=== PATIENT | female | born 1950 | race Caucasian/White ===

== ENCOUNTER 2016-12-03 06:55 | Emergency (ER) | payer MEDICARE ==
[~2016-12-03] VITALS: Ht 152.4 cm; Wt 100.0 kg
[~2016-12-03 06:55] MED LIST: ALBU6.7H INH; BACL10TA PO; DUONI INH; LEVO.1 PO; MOBI7.5T PO; ROSU40 PO
[2016-12-03 07:05] VITALS: BP 158/83; PULSE 98; RESP 20; TEMP 97; O2SAT 95
[2016-12-03] MEDS ORDERED: PROZ40CA PO (07:13)
[2016-12-03] MEDS ORDERED: MELO7.5T4 PO (07:13)
[2016-12-03] MEDS ORDERED: ROSU40 PO (07:13)
[2016-12-03] MEDS ORDERED: LEVO.15 PO (07:13)
--- NOTE | 2016-12-03 07:21 | PD ---
HPI Chief Complaint: Musculoskeletal Complaint Time Seen by Provider: 07:20 Travel History International Travel<30 days: No Contact w/Intl Traveler<30days: No Traveled to known affect area: No History of Present Illness HPI 66-year-old female presents to emergency Department with complaint of right- sided lower back pain that radiates down her buttock and back of her right leg 3 weeks. Denies fall, injury, strain. Has history of right hip replacement and chronic low back pain. Denies encopresis, incontinence, saddle anesthesias. Denies paresthesias, loss of sensation, decreased range of motion , decreased strength to bilateral lower extremities. Denies abdominal pain, fever, chills, nausea, vomiting. Has tried multiple [id number] medications without relief. Tried taking Flexeril with no relief. Pain is aggravated with walking and movement. Pain is decreased while at rest and in sitting position. Denies urinary symptoms, but states she did think about the possibility of urinary tract infection. Denies anticoagulants. Denies cancer. Dr. Gregorio is her orthopedic, and she has an appointment with him tomorrow, but cannot tolerate the pain and wanted to be seen today. Dr. Carrillo his primary care provider. History of COPD. Allergies to sulfa. No other modifying factors or associated signs and symptoms. PFSH Past Medical History Arthritis: Yes Blood Disorders: No Anxiety: No Depression: No Cancer: Yes (RIGHT BREAST RADIAL MASTECTOMY) Cardiovascular Problems: No High Cholesterol: Yes Chemotherapy: No Congestive Heart Failure: No COPD: Yes Coronary Artery Disease: No Diabetes: No Diminished Hearing: No Endocrine: Yes Gastrointestinal Disorders: Yes (HX REFLUX) GERD: Yes Genitourinary: Yes (URGENCY AND INCONTINENCE WITH COUGH) Hepatitis: No Hiatal Hernia: No Hypertension: Yes Immune Disorder: No Implanted Vascular Access Dvce: Yes Musculoskeletal: Yes (BRUISED ROTATOR CUFF ON LEFT, BURSITIS ON RIGHT SHOULDER) Neurologic: Yes Psychiatric: No Reproductive: Yes (HYSTERECTOMY R/T FIBROID TUMORS) Respiratory: Yes (COPD) Migraines: Yes Radiation Therapy: No Thyroid Disease: Yes Tetanus Vaccination: Unknown Past Surgical History Abdominal Surgery: Yes (GALLBLADDER) Body Medical Devices: METAL PLATE IN NECK AND EQUIPMENT IN LEFT HIP Cardiac Surgery: No Cholecystectomy: Yes (1981) Ear Surgery: No Eye Surgery: Yes (BILAT CATARACT) Genitourinary Surgery: No Gynecologic Surgery: Yes (HYSTERECTOMY) Hysterectomy: Yes Oral Surgery: Yes (FULL DENTURES TOP AND BOTTOM) Thoracic Surgery: Yes (RIGHT MASTECTOMY) Other Surgery: Yes (RIGHT MASTECTOMY 2001) Social History Alcohol Use: No Tobacco Use: No Substance Use: No Allergies-Medications (Allergen,Severity, Reaction): Coded Allergies: Sulfa (Verified Allergy, Severe, hives, 12/19/15) DENIES HIVES, CAUSES NAUSEA VOMITING Reported Meds & Prescriptions Reported Meds & Active Scripts Active Reported Meloxicam 7.5 Mg Tab 7.5 Mg PO DAILY Prozac (Fluoxetine HCl) 40 Mg Cap 40 Mg PO DAILY Crestor (Rosuvastatin Calcium) 40 Mg Tab 40 Mg PO DAILY Synthroid (Levothyroxine Sodium) 150 Mcg Tab 150 Mcg PO DAILY Review of Systems Except as stated in HPI: all other systems reviewed are Neg Physical Exam Narrative GENERAL: Well-nourished, well-developed female patient, in no acute distress SKIN: Warm and dry. HEAD: Atraumatic. Normocephalic. EYES: Pupils equal and round. No scleral icterus. No injection or drainage. ENT: Mucosa pink and moist. Airway patent. NECK: Trachea midline. CARDIOVASCULAR: Regular rate. RESPIRATORY: No accessory muscle use. GASTROINTESTINAL: Abdomen soft, non-tender, nondistended. Positive bowel sounds. No hepato-splenomegaly, or palpable masses. No guarding. Bladder nontender and nondistended. MUSCULOSKELETAL: Bilateral lower extremities supple and non-tense with 2+ pedal pulses and sensory intact; with full range of motion and 5/5 strength. Active dorsiflexion and extension of bilateral feet. Right straight leg raise is positive for low back pain. Left straight leg raise is negative for low back pain. Ambulatory with normal gait and assistance with cane. Sitting up in bed at 90. No obvious deformities. No clubbing. No cyanosis. No edema. BACK: No midline point tenderness on palpation of the lumbar, thoracic spine. Tenderness on palpation of right iliosacral area. No obvious deformities. NEUROLOGICAL: Awake and alert. Oriented 3. No obvious cranial nerve deficits. Motor grossly within normal limits. Normal speech. Moves all extremities. 5/5 strength to all extremities. Sensory intact. PSYCHIATRIC: Appropriate mood and affect; insight and judgment normal. Data Data Last Documented VS Vital Signs Date Time Temp Pulse Resp B/P Pulse Ox O2 Delivery O2 Flow Rate FiO2 12/03/16 07:05 97.0 98 20 158/83 95 Orders Ketorolac Inj (Toradol Inj) (12/03/16 07:30) Orphenadrine Inj (Norflex Inj) (12/03/16 07:30) Urinalysis - C+S If Indicated (12/03/16 07:21) [facility] Medical Decision Making Medical Screen Exam Complete: Yes Emergency Medical Condition: Yes Medical Record Reviewed: Yes Differential Diagnosis Sciatica, lumbar radiculopathy, acute exacerbation of chronic low back pain Narrative Course 66-year-old female physical exam and history of present illness consistent with right-sided sciatica. Has appointment with her orthopedic, Dr. Gregorio, tomorrow. Patient is ambulatory with normal gait at bedside with assistance with her cane. I will get a urinalysis to rule out UTI. Toradol and Norflex administered in the ER. Urinalysis ordered. 0831: Patient continues to be unable to urinate and does not want to stay any longer. She is declining urinalysis at this time. She says she will follow up with primary care outpatient. I offered the patient a nonnarcotic and a muscle relaxer for home and she declined, as she is following up with her orthopedic tomorrow. Instructed patient to follow up with primary care for further concern of urinary tract infection. Instructed patient to follow up with orthopedics tomorrow as scheduled appointment. Patient verbalized understanding and agreement to treatment plan and discharge instructions. Patient is medically cleared and stable for discharge. Discussed reasons to return to the emergency department. Instructed patient to follow up with primary care provider. Patient agrees with treatment plan. The patients vital signs are stable and the patient is stable for outpatient follow-up and treatment. Patient discharged home, stable and in no acute distress. Diagnosis Primary Impression: Sciatica of right side Referrals: Orthopedist Primary Care Physician Patient Instructions: General Instructions, Sciatica (ED) Additional Instructions: Tylenol as directed and as needed for pain Heating pad and/or ice to affected area to reduce pain Avoid aggravating activities; increase activity as tolerated Follow-up with primary care provider Return to emergency department immediately with worsening of symptoms Med/Other Pt SpecificInfo: No Change to Meds, No Meds Exist/No RX given Disposition: 01 DISCHARGE HOME Condition: Stable Moon Alonzo Dec 03, 2016 07:21
[2016-12-03] MEDS ORDERED: KETOROLAC TROMETHAMINE 60 MG/2 ML (IM) VIAL IM ONE (07:30)
[2016-12-03] MEDS ORDERED: ORPHENADRINE INJ 60 MG/2 ML AMP IM ONE (07:30)
== END 2016-12-03 08:34 | disposition home or self-care (01) ==
LOC: NEPB 06:55
DX: M54.31 Sciatica, right side (principal); Z96.641 Presence of right artificial hip joint; J44.9 Chronic obstructive pulmonary disease, unspecified; E78.00 Pure hypercholesterolemia, unspecified; K21.9 Gastro-esophageal reflux disease without esophagitis; I10 Essential (primary) hypertension; E07.9 Disorder of thyroid, unspecified
CPT/HCPCS: 96372; 99282; J1885; J2360

== ENCOUNTER 2016-12-10 13:58 | Inpatient (IN) | payer MEDICARE ==
[~2016-12-10] VITALS: Ht 152.4 cm; Wt 103.1 kg
[~2016-12-10 13:58] MED LIST changes: -ALBU6.7H INH; -BACL10TA PO; -DUONI INH; -LEVO.1 PO; +LEVO.15 PO; +MELO7.5T4 PO; -MOBI7.5T PO; +PROZ40CA PO
[2016-12-16] MEDS ORDERED: HYDR-3580 PO (07:30)
[2016-12-19] MEDS ORDERED: GENTAMICIN SULFATE 80 MG/2 ML VIAL ONE (09:54)
[2016-12-19] MEDS ORDERED: ceFAZolin INJ 1,000 MG VIAL ONE (09:54)
[2016-12-19] MEDS ORDERED: LACTATED RINGER'S 1000 ML INJ 1,000 ML ONE (10:16)
[2016-12-19] MEDS ORDERED: VANCOMYCIN HCL 1000 MG VIAL ONE ×2 (10:16→10:28)
[2016-12-19] MEDS ORDERED: SODIUM CHLOR 0.9% 250 ML INJ 250 ML ONE (10:16)
[2016-12-19] MEDS: LACTATED RINGER'S 1000 ML IV SCH (10:25)
[2016-12-19] MEDS ORDERED: BIOT1SUB SL (10:27)
[2016-12-19] MEDS ORDERED: LACTCAP8 PO (10:27)
[2016-12-19 10:29] VITALS: BP 150/76; PULSE 77; RESP 18; TEMP 99.2; O2SAT 97
[2016-12-19] MEDS ORDERED: ceFAZolin 2 GM PREMIX 50 ML IV SCH (10:45)
[2016-12-19] MEDS ORDERED: METOPROLOL TARTRATE 25 MG TAB PO PRN (10:45)
[2016-12-19] MEDS ORDERED: VANCOMYCIN 1000 MG/NS 250 ML (for <70 kg) IV SCH ×2 (10:45)
[2016-12-19] MEDS: SODIUM CHLORID 0.9% 500 ML IV SCH (10:45)
[2016-12-19] MEDS: CHLORHEXIDINE GLUCONATE 4% SOLN 120 ML BTL TOP SCH (10:45)
[2016-12-19] MEDS ORDERED: INSULIN HUMAN REGULAR 1,000 UNITS/10 ML VIAL SQ PRN (10:45)
[2016-12-19] MEDS ORDERED: MIDAZOLAM HCL 2 MG/2 ML VIAL ONE (11:12)
[2016-12-19] MEDS ORDERED: DEXAMETHASONE SOD PHOS 4 MG/ML VIAL ONE (11:12)
[2016-12-19] MEDS ORDERED: PROPOFOL 200 MG/20 ML AMP IV ONE (12:00)
[2016-12-19] MEDS ORDERED: NEOSTIGMINE METHYLSULFATE 10 MG/10 ML VIAL IV PUSH ONE (12:00)
[2016-12-19] MEDS ORDERED: ONDANSETRON HCL 4 MG/2 ML VIAL IV PUSH ONE (12:00)
[2016-12-19] MEDS ORDERED: ePHEDrine/NS 25 MG/5 ML SYR IV ONE (12:00)
--- NOTE | 2016-12-19 13:42 | HHI.PR ---
Immediate Post Op Note Procedure Date: Dec 19, 2016 Pre Op Diagnosis: (1) Osteoarthritis of right hip Post Op Diagnosis: (1) Osteoarthritis of right hip Surgeon: Mario Brown M.D. Mechanical Systems Design Engineer(s): Mona Ram PA-C Procedure: R DIPAK Complications: none Specimen(s) removed: none Estimated blood loss: 400 cc Anesthesia: General Drains: None Patient to: PACU Patient Condition: Good Implant/Devices: SEE IMPLANT LOG (if applicable) Date/Time of Procedure: SEE SURGICAL CARE RECORD Mario Brown MD Dec 19, 2016 13:41
[2016-12-19] MEDS ORDERED: MORPHINE SULFATE 30 MG/30 ML PCA IV SCH (13:45)
[2016-12-19] MEDS ORDERED: ONDANSETRON HCL 4 MG/2 ML VIAL IVP PRN (13:45)
[2016-12-19] MEDS ORDERED: SODIUM CHLORIDE 0.9% FLUSH 5 ML FLUSH IVF PRN (13:45)
[2016-12-19] MEDS ORDERED: Post-op Orders (for Pharmacy) MISC XX ONE (13:45)
[2016-12-19] MEDS ORDERED: ACETAMINOPHEN/HYDROcodone 325 MG/7.5 MG TAB PO PRN (13:45)
[2016-12-19] MEDS ORDERED: ALUMINUM/MAGNESIUM/SIMETH 30 ML CUP PO PRN (13:45)
[2016-12-19] MEDS ORDERED: ZOLPIDEM TARTRATE 5 MG TAB PO PRN (13:45)
[2016-12-19] MEDS ORDERED: NALOXONE HCL 0.4 MG/ML AMP IV PRN (13:45)
[2016-12-19] MEDS ORDERED: *morphine SULFATE 8 MG/ML PERIprocedure ONLY ONE ×3 (13:53→14:17)
[2016-12-19] MEDS ORDERED: fentaNYL CITRATE 250 MCG/5 ML AMP ONE (13:59)
[2016-12-19] MEDS ORDERED: MORPHINE SULFATE 4 MG/ML INJ ONE (14:00)
[2016-12-19] MEDS: PCA - TOTAL MG MORPHINE DELIVERED PER SHIFT SCH ×2 (14:00→22:00)
[2016-12-19] MEDS ORDERED: *HYDROmorphone PF 1 MG VIAL PERIprocedural Use ONLY ONE (14:31)
--- NOTE | 2016-12-19 14:31 | RADRPT ---
EXAM DATE/TIME: 12/19/2016 13:51 [facility] COMPARISON: No previous studies available for comparison. INDICATIONS : Post op right hip. MEDICAL HISTORY : None. SURGICAL HISTORY : None. ENCOUNTER: Initial ACUITY: 1 day PAIN SCORE: 10/10 LOCATION: Right hip. FINDINGS: AP view of the pelvis and lateral view of right hip. Bilateral hip prostheses in place. Alignment wit hin normal limits. No evidence of fracture. CONCLUSION: Unremarkable postoperative appearance right hip prosthesis. Joey Simmons MD on December 19, 2016 at 14:29 Board Certified Radiologist. This report was verified electronically.
[2016-12-19] MEDS: LACTATED RINGER'S 1000 ML INJ 1,000 ML IV SCH (14:40)
[2016-12-19] MEDS ORDERED: DO NOT ADM ANY ANTICOAGULANT DRUGS XX PRN (14:45)
[2016-12-19 15:19] VITALS: BP 110/68; PULSE 101; RESP 18; TEMP 98.5; O2SAT 96
--- NOTE | 2016-12-19 17:38 | PD.CONS ---
HPI Service [facility] Consult Requested By Primary Care Physician Unknown Diagnoses: Past Family Social History Allergies: Coded Allergies: Sulfa (Verified Allergy, Severe, hives, 12/11/16) DENIES HIVES, CAUSES NAUSEA VOMITING Physical Exam Vital Signs Vital Signs Date Time Temp Pulse Resp B/P Pulse Ox O2 Delivery O2 Flow Rate FiO2 12/19/16 14:45 98.6 88 14 121/58 95 Nasal Cannula 2 12/19/16 14:40 12 12/19/16 14:30 85 15 122/68 96 Nasal Cannula 3 12/19/16 14:15 83 15 126/67 99 Nasal Cannula 3 12/19/16 14:00 83 16 132/82 99 Simple Mask 8 12/19/16 13:45 97.6 80 14 161/90 95 Simple Mask 8 12/19/16 10:29 99.2 77 18 150/76 97 Physical Exam GENERAL: This is a well-nourished, well-developed patient, in no apparent distress. SKIN: No rashes, ecchymoses or lesions. Cool and dry. HEAD: Atraumatic. Normocephalic. No temporal or scalp tenderness. EYES: Pupils equal round and reactive. Extraocular motions intact. No scleral icterus. No injection or drainage. ENT: Nose without bleeding, purulent drainage or septal hematoma. Throat without erythema, tonsillar hypertrophy or exudate. Uvula midline. Airway patent. NECK: Trachea midline. No JVD or lymphadenopathy. Supple, nontender, no meningeal signs. CARDIOVASCULAR: Regular rate and rhythm without murmurs, gallops, or rubs. RESPIRATORY: Clear to auscultation. Breath sounds equal bilaterally. No wheezes , rales, or rhonchi. GASTROINTESTINAL: Abdomen soft, non-tender, nondistended. No hepato-splenomegaly , or palpable masses. No guarding. MUSCULOSKELETAL: Extremities without clubbing, cyanosis, or edema. No joint tenderness, effusion, or edema noted. No calf tenderness. Negative Homans sign bilaterally. NEUROLOGICAL: Awake and alert. Cranial nerves II through XII intact. Motor and sensory grossly within normal limits. Five out of 5 muscle strength in all muscle groups. Normal speech. Laboratory Laboratory Tests Test 12/19/16 10:24 Blood Type A POSITIVE Antibody Screen NEGATIVE Crossmatch Leukocyte-Reduced Red Blood Cells Blood Bank Comment A/P Assessment and Plan Assessment End-stage osteoarthritis right hip Status post right total hip arthroplasty on 12/19/16 History significant for obesity, tobacco abuse, COPD, right breast cancer status post mastectomy, Hypertension, left total hip replacement, insomnia, hypertension, urinary incontinence, back pain Status post prior back surgery, cholecystectomy Management Pain management Physical therapy Bowel regimen Prophylactic antibiotics were given intraoperatively Wound management per orthopedics Follow labs Keep hemoglobin above 8 Replace electrolytes as needed Discussed with patient Discussed with nurse We will follow daily while hospitalized Thank you for this consult La Angeles MD Dec 19, 2016 17:38
[2016-12-19 20:00] VITALS: BP 114/59; PULSE 100; RESP 18; TEMP 96.9; O2SAT 95
[2016-12-19] MEDS: SODIUM CHLORIDE 0.9% FLUSH 5 ML FLUSH IVF SCH (20:12)
[2016-12-19 21:55] VITALS: O2SAT 95
[2016-12-20] VITALS (8 sets, daily range): BP systolic 88–119; BP diastolic 50–66; PULSE 70–95; RESP 17–22; TEMP 96.3–97.8; O2SAT 94–98
[2016-12-20] MEDS: LACTATED RINGER'S 1000 ML INJ 1,000 ML IV SCH ×2 (02:07→14:37)
[2016-12-20] MEDS: SODIUM CHLORID 0.9% 500 ML IV SCH (03:25)
[2016-12-20 05:40] LABS: INTERNATIONAL NORMALIZED RATIO 1.5 RATIO; PROTHROMBIN TIME - PATIENT 16.7 SEC (9.8-11.6)
[2016-12-20 05:50] LABS: HEMATOCRIT 33.5 % (35.0-46.0); REVIEW FLAG FINAL
[2016-12-20] MEDS: PCA - TOTAL MG MORPHINE DELIVERED PER SHIFT SCH ×3 (06:00→22:00)
[2016-12-20] MEDS: LEVOTHYROXINE SODIUM 150 MCG TAB PO SCH (06:24)
[2016-12-20] MEDS ORDERED: BEDSIDE COMMODE1 MI1 (06:59)
[2016-12-20] MEDS ORDERED: WALKER WHEELS/F1 MIS (06:59)
--- NOTE | 2016-12-20 07:02 | PD.ORT.PN ---
Subjective Subjective Remarks pt doing well, no SOB, no chest pain, decreased pre-operative right hip pain Objective Vitals Vital Signs Date Time Temp Pulse Resp B/P Pulse Ox O2 Delivery O2 Flow Rate FiO2 12/20/16 06:00 19 12/20/16 04:00 97.3 92 18 105/65 95 12/20/16 00:00 97.8 95 20 119/66 95 12/19/16 22:00 18 12/19/16 21:55 95 21 12/19/16 20:00 96.9 100 18 114/59 95 12/19/16 15:19 98.5 101 18 110/68 96 12/19/16 14:45 98.6 88 14 121/58 95 Nasal Cannula 2 12/19/16 14:40 12 12/19/16 14:30 85 15 122/68 96 Nasal Cannula 3 12/19/16 14:15 83 15 126/67 99 Nasal Cannula 3 12/19/16 14:00 83 16 132/82 99 Simple Mask 8 12/19/16 13:45 97.6 80 14 161/90 95 Simple Mask 8 12/19/16 10:29 99.2 77 18 150/76 97 I/O 12/19/16 12/19/16 12/19/16 12/20/16 12/20/16 12/20/16 07:00 15:00 23:00 07:00 15:00 23:00 Intake Total 1100 ml 1316 ml Output Total 400 ml Balance 700 ml 1316 ml Intake Oral 720 ml IV Total 100 ml 596 ml Other 1000 ml Output Estimated Blood Loss 400 ml # Voids 1 # Bowel Movements 0 Result Diagram: 12/20/16 0506 Other Results Laboratory Tests Test 12/20/16 05:06 Prothrombin Time 16.7 SEC (9.8-11.6) Prothromb Time International 1.5 RATIO Ratio Objective Remarks seen by Dr. Mario Brown right hip dressings dry and intact +NVI no calf tenderness, negative homans Assessment & Plan Assessment and Plan POD # 1 s/p R DIPAK low dose Coumadin for DVT prop PT-WBAT d/c RN DIABETES today anticipate d/c to SNF on Friday Mona Ram Dec 20, 2016 07:02
[2016-12-20] MEDS: FLUoxetine HCL 20 MG CAP PO SCH (09:28)
[2016-12-20] MEDS: ATORVASTATIN 80 MG TAB PO SCH (09:28)
[2016-12-20] MEDS: SODIUM CHLORIDE 0.9% FLUSH 5 ML FLUSH IVF SCH ×2 (09:29→20:26)
[2016-12-20] MEDS: LACTATED RINGER'S 1000 ML IV SCH (10:45)
[2016-12-20] MEDS: CHLORHEXIDINE GLUCONATE 4% SOLN 120 ML BTL TOP SCH (10:45)
[2016-12-20] MEDS: ACETAMINOPHEN/HYDROcodone 325 MG/7.5 MG TAB PO PRN ×3 (12:32→22:14)
--- NOTE | 2016-12-20 13:36 | HHI.PR ---
Subjective Subjective Remarks no sob no cp no fever c/o shooting pain down right thigh oob in chair no bm yet eating okay, no n/v Review of Systems Constitutional Constitutional Remarks 12 point ROS completed, negative except as noted above Vitals/Results Intake & Output 12/19/16 12/19/16 12/20/16 15:00 23:00 07:00 Intake Total 1100 ml 1316 ml 708 ml Output Total 400 ml Balance 700 ml 1316 ml 708 ml Intake Oral 720 ml 240 ml IV Total 100 ml 596 ml 468 ml Other 1000 ml Output Estimated Blood Loss 400 ml # Voids 1 3 # Bowel Movements 0 0 Vital Signs Vital Signs Date Time Temp Pulse Resp B/P Pulse Ox O2 Delivery O2 Flow Rate FiO2 12/20/16 08:15 95 21 12/20/16 08:00 97.1 92 17 108/64 94 12/20/16 06:00 19 12/20/16 04:00 97.3 92 18 105/65 95 12/20/16 00:00 97.8 95 20 119/66 95 12/19/16 22:00 18 12/19/16 21:55 95 21 12/19/16 20:00 96.9 100 18 114/59 95 12/19/16 15:19 98.5 101 18 110/68 96 12/19/16 14:45 98.6 88 14 121/58 95 Nasal Cannula 2 12/19/16 14:40 12 12/19/16 14:30 85 15 122/68 96 Nasal Cannula 3 12/19/16 14:15 83 15 126/67 99 Nasal Cannula 3 12/19/16 14:00 83 16 132/82 99 Simple Mask 8 12/19/16 13:45 97.6 80 14 161/90 95 Simple Mask 8 CBC/BMP: 12/20/16 0506 Lab Results Laboratory Tests Test 12/20/16 05:06 Hemoglobin 11.1 GM/DL Hematocrit 33.5 % Prothrombin Time 16.7 SEC Prothromb Time International 1.5 RATIO Ratio Physical Exam General General Appearance: Well Developed, Well Nourished, No Acute Distress, Comfortable Eyes Eye Exam: Pupils Equal, Pupils Reactive Ears & Nose Ears & Nose Exam: Nasal Mucosa [place] Throat Throat Exam: Oral Mucosa [place] & Moist Neck Neck Exam: Neck Supple, Trachea Midline Pulmonary Resp Exam: Clear Bilaterally, No Distress Cardiology CV Exam: Regular, Good Perfusion Gastrointestinal/Abdomen GI Exam: Soft, Non-Tender, Bowel Sounds Present, Non-Distended Musculoskeletal MS Exam: Joints Intact Integumentary Skin Exam: Warm, Dry Extremeties Extremities Exam: Pedal Pulses Palpable, Trace Edema Neurologic Neuro Exam: Alert, Awake, Oriented, Speech Clear, Moving All Extremities, No Focal Deficits Psychiatric Psych Exam: Appropriate Responses VTE Prophylaxis VTE Prophylaxis Device: TEDs VTE Prophylaxis Meds: Coumadin Assessment/Plan Assessment/Plan Assessment End-stage osteoarthritis right hip Status post right total hip arthroplasty on 12/19/16 History significant for obesity, tobacco abuse, COPD, right breast cancer status post mastectomy, Hypertension, left total hip replacement, insomnia, hypertension, urinary incontinence, back pain Status post prior back surgery, cholecystectomy Management Pain management Physical therapy Bowel regimen Prophylactic antibiotics were given intraoperatively Wound management per orthopedics Follow labs Keep hemoglobin above 8, HH stable Replace electrolytes as needed will Zanaflex for muscle spasms PRN continue to follow D/W RN D/W Dr. Angeles D/W pt This patient was seen by myself and Dr. Angeles, this note is written on his behalf. Erin Newton Dec 20, 2016 13:36
[2016-12-20] MEDS: WARFARIN SOD 5 MG TAB PO SCH (16:40)
[2016-12-20] MEDS ORDERED: MAGNESIUM CITRATE SOLN 300 ML BTL PO ONE (17:00)
[2016-12-20] MEDS: DOCUSATE SODIUM 100 MG CAP PO SCH (20:28)
[2016-12-21] VITALS (7 sets, daily range): BP systolic 97–144; BP diastolic 50–82; PULSE 63–80; RESP 18–20; TEMP 96.4–98.7; O2SAT 93–98
[2016-12-21] MEDS: ACETAMINOPHEN/HYDROcodone 325 MG/7.5 MG TAB PO PRN ×5 (02:31→20:30)
[2016-12-21] MEDS: LACTATED RINGER'S 1000 ML INJ 1,000 ML IV SCH ×2 (03:07→15:37)
[2016-12-21] MEDS: PCA - TOTAL MG MORPHINE DELIVERED PER SHIFT SCH ×2 (06:00→11:31)
[2016-12-21 06:25] LABS: INTERNATIONAL NORMALIZED RATIO 1.4 RATIO; PROTHROMBIN TIME - PATIENT 15.5 SEC (9.8-11.6)
[2016-12-21] MEDS: LEVOTHYROXINE SODIUM 150 MCG TAB PO SCH (06:46)
--- NOTE | 2016-12-21 07:37 | PD.ORT.PN ---
Subjective Subjective Remarks pt doing well, states her pre-operative right hip pain is gone Objective Vitals Vital Signs Date Time Temp Pulse Resp B/P Pulse Ox O2 Delivery O2 Flow Rate FiO2 12/21/16 04:00 97.2 77 20 111/55 98 12/21/16 00:00 97.1 72 20 102/66 98 12/20/16 20:00 97.7 80 18 105/60 98 12/20/16 19:14 18 12/20/16 17:00 97/58 12/20/16 16:00 96.3 70 18 88/50 95 12/20/16 12:00 97.1 93 22 115/60 97 12/20/16 08:15 95 21 12/20/16 08:00 97.1 92 17 108/64 94 I/O 12/20/16 12/20/16 12/20/16 12/21/16 12/21/16 12/21/16 07:00 15:00 23:00 07:00 15:00 23:00 Intake Total 708 ml 720 ml 480 ml 280 ml Output Total 800 ml Balance 708 ml -80 ml 480 ml 280 ml Intake Oral 240 ml 720 ml 480 ml 280 ml IV Total 468 ml Output Urine Total 800 ml # Voids 3 2 1 3 # Bowel Movements 0 0 0 Result Diagram: 12/20/16 0506 Other Results Laboratory Tests Test 12/21/16 05:32 Prothrombin Time 15.5 SEC (9.8-11.6) Prothromb Time International 1.4 RATIO Ratio Objective Remarks seen by Dr. Mario Brown right hip dressings dry and intact +NVI no calf tenderness, negative homans Assessment & Plan Assessment and Plan POD # 2 s/p R DIPAK low dose Coumadin for DVT prop PT-WBAT anticipate d/c to SNF tomorrow Mona Ram Dec 21, 2016 07:27
[2016-12-21] MEDS: FLUoxetine HCL 20 MG CAP PO SCH (09:39)
[2016-12-21] MEDS: ATORVASTATIN 80 MG TAB PO SCH (09:39)
[2016-12-21] MEDS: DOCUSATE SODIUM 100 MG CAP PO SCH ×2 (09:39→20:29)
[2016-12-21] MEDS: SODIUM CHLORIDE 0.9% FLUSH 5 ML FLUSH IVF SCH ×2 (09:42→20:30)
[2016-12-21] MEDS: LACTATED RINGER'S 1000 ML IV SCH (09:46)
[2016-12-21] MEDS: CHLORHEXIDINE GLUCONATE 4% SOLN 120 ML BTL TOP SCH (09:47)
--- NOTE | 2016-12-21 14:18 | HHI.PR ---
Subjective History of Present Illness Subjective Remarks no sob no cp Afebrile Appetite good No acute pain for now oob in chair no bm yet, took M OM no n/v Review of Systems Hospital Day: 2 Review of Systems Constitutional Constitutional: Weakness (generalized) Constitutional Remarks 12 point ROS done. Positives noted, generalized weakness, constipation, anxiety mild, otherwise negative systems GI/Abdomen GI/Abdominal Exam: Constipation GI/Abdomen Remarks Taking a laxative for bowel regimen Musculoskeletal MS: Discomfort/Pain (when necessary) Psychiatric Psychiatric: Anxiety (mild) Vitals/Results Intake & Output 12/20/16 12/20/16 12/21/16 15:00 23:00 07:00 Intake Total 720 ml 480 ml 280 ml Output Total 800 ml Balance -80 ml 480 ml 280 ml Intake Oral 720 ml 480 ml 280 ml Output Urine Total 800 ml # Voids 2 1 3 # Bowel Movements 0 0 Vital Signs Vital Signs Date Time Temp Pulse Resp B/P Pulse Ox O2 Delivery O2 Flow Rate FiO2 12/21/16 12:00 96.4 79 18 119/58 95 12/21/16 09:18 97.5 63 18 97/50 96 12/21/16 04:00 97.2 77 20 111/55 98 12/21/16 00:00 97.1 72 20 102/66 98 12/20/16 20:00 97.7 80 18 105/60 98 12/20/16 19:14 18 12/20/16 17:00 97/58 12/20/16 16:00 96.3 70 18 88/50 95 CBC/BMP: 12/20/16 0506 Lab Results Laboratory Tests Test 12/21/16 05:32 Prothrombin Time 15.5 SEC Prothromb Time International 1.4 RATIO Ratio Imaging Remarks Last Impressions Hip and Pelvis X-Ray 12/19/16 0000 Signed Impressions: Service Date/Time: December 13:51 - CONCLUSION: Unremarkable postoperative appearance right hip prosthesis. Joey Simmons MD Current Medications Active Medications Docusate Sodium (Colace) 100 mg BID PO Last administered on 12/21/16 09:39; Admin Dose 100 MG; Start 12/20/16 at 21:00 Magnesium Citrate (Citroma Liq) 100 ml ONCE ONCE PO Last administered on 16:40; Admin Dose 100 ML; Start 12/20/16 at 17:00; Stop 12/20/16 at 17:01; Status DC Tizanidine HCl (Zanaflex) 4 mg Q8H PRN PO Last administered on 12/21/16 06:46; Admin Dose 4 MG; Start 12/20/16 at 21:00 Warfarin Sodium (Coumadin) Follow Sliding Scale... DAILY@1600 PO Last administered on 12/20/16 16:40; Admin Dose 2.5 MG; Start 12/20/16 at 16:00 Physical Exam General General Appearance: Well Developed, Well Nourished, No Acute Distress, Comfortable, Obese Eyes Eye Exam: Pupils Equal, Pupils Reactive, Sclera White Ears & Nose Ears & Nose Exam: Nasal Mucosa [place] Throat Throat Exam: Oral Mucosa [place] & Moist Neck Neck Exam: Neck Supple, Trachea Midline Pulmonary Resp Exam: Clear Bilaterally, No Distress Cardiology CV Exam: Regular, Good Perfusion, Murmur CV Remarks Soft systolic murmur, lower left sternal border Gastrointestinal/Abdomen GI Exam: Soft, Non-Tender, Bowel Sounds Present, Non-Distended GI Remarks Abdomen taut. Musculoskeletal MS Exam: Joints Intact, Good Strength MS Remarks Ambulated with PT Right hip dressing, changed to 4 2017 clean dry and intact Right leg splint intact Integumentary Skin Exam: Warm, Dry Extremeties Extremities Exam: Pedal Pulses Palpable, Trace Edema Neurologic Neuro Exam: Alert, Awake, Oriented, Speech Clear, Moving All Extremities, No Focal Deficits Psychiatric Psych Exam: Appropriate Responses VTE Prophylaxis VTE Prophylaxis Device: TEDs VTE Prophylaxis Meds: Coumadin Assessment/Plan Assessment/Plan Assessment End-stage osteoarthritis right hip Status post right total hip arthroplasty on 12/19/16 History significant for obesity, tobacco abuse, COPD, right breast cancer status post mastectomy, Hypertension, left total hip replacement, insomnia, hypertension, urinary incontinence, back pain Status post prior back surgery, cholecystectomy Management Pain management Physical therapy Bowel regimen, to drink mag citrate today, monitor bowel regimen Prophylactic antibiotics were given intraoperatively Wound management per orthopedics Follow labs Keep hemoglobin above 8, HH stable Replace electrolytes as needed will Zanaflex for muscle spasms PRN continue to follow supportive care for her mild anxiety. PT INR 1.4, monitoring any needs D/W RN D/W Dr. Angeles D/W pt This patient was seen by myself and Dr. Angeles, this note is written on his behalf. Sirisha Gaytan Dec 21, 2016 14:18
[2016-12-21] MEDS: WARFARIN SOD 5 MG TAB PO SCH (16:23)
[2016-12-22 00:24] VITALS: BP 115/58; PULSE 76; RESP 15; TEMP 97.6; O2SAT 97
[2016-12-22] MEDS: ACETAMINOPHEN/HYDROcodone 325 MG/7.5 MG TAB PO PRN ×3 (00:28→10:16)
[2016-12-22] MEDS: LACTATED RINGER'S 1000 ML INJ 1,000 ML IV SCH (04:07)
[2016-12-22] MEDS: LEVOTHYROXINE SODIUM 150 MCG TAB PO SCH (06:00)
--- NOTE | 2016-12-22 07:24 | MP ---
cc: RUDI JIMENEZ M.D., JEFFREY DATE OF SURGERY: 12/19/2016 PREOPERATIVE DIAGNOSIS 1. Right hip severe osteoarthritis, acetabular dysplasia. 2. 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 3. Morbid obesity. POSTOPERATIVE DIAGNOSIS 1. Right hip severe osteoarthritis, acetabular dysplasia. 2. 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 3. Morbid obesity. PROCEDURE Right total hip arthroplasty. SURGEON Rosa Maria Jimenez MD ASSESSMENT Mona Ram PA-C SPECIMEN None. ESTIMATED BLOOD LOSS 400 cc. COMPLICATIONS None. ANESTHESIA General. DRAINS None. CONDITION Stable. PLAN OF ACTIVITY Per orders. My culinary assistant, Mona Ram PA-C, was present for the entire surgical case. She was medically necessary for the entire case because of the complexity of the case and to facilitate the performance of the procedure. The TICKET WRITER at the back table did not have the skill set for this case to manipulate the instruments, e.g., the multiple different types of soft tissue retractors, trial implants and permanent implants. DETAILS OF PROCEDURE The patient was brought into the operating room and had satisfactory general endotracheal anesthesia by the Department of Anesthesia. The patient was placed in a lateral decubitus position. Because of the patient's morbid obesity great care was made to protect all pressure points. The right hip and lower extremity was prepped and draped in the usual sterile manner. A posterolateral exposure to the hip was made. All bleeders were individually coagulated. Dissection was carried through a considerable amount of adipose tissue down to the underlying fascia. The fascia radha and gluteus wale was incised in line with the skin incision. Small bleeders were individually coagulated. A Charnley retractor was placed in the wound in order to allow better exposure. Great care was made to identify and protect the sciatic nerve throughout the entire operative procedure. The short external rotators were removed as a group. The hip abductors were preserved. A capsulotomy was performed and the hip was dislocated posteriorly. The patient was found to have severe osteoarthritis involving the hip with acetabular dysplasia. An osteotomy was made on the femoral neck at the appropriate level. Exposure of the acetabulum was made. A considerable amount of synovium was removed as was the capsule and labrum. Hemispherical reamers were then used to deepen the cup and sequentially reamed to 46 mm in outer diameter. A bicentric cup in a Press-Fit manner was found to be stable and satisfactory. Attention was now brought to the femur. It was sequentially broached to 6.0 mm femoral component, standard offset. Trial duction was made with a 0 neck, 28 mm ball. The hip was reduced. The patient was found to have satisfactory limb lengths, satisfactory stability of the hip and satisfactory range of motion. The hip again was dislocated posteriorly and all trial components removed. A #6 standard offset Biomet Taperloc stem was then placed in anatomic position approximately 15 degrees anteversion. The 0 neck was assembled onto the trunnion with the 28 mm ceramic ball. The hip was then reduced. The patient was found to have satisfactory limb lengths, satisfactory stability and satisfactory range of motion. The wound was irrigated with copious amounts of sterile saline antibiotic solution throughout the entire operative procedure. The short external rotators were repaired back to the greater trochanter with drill holes using #2 Tycron suture. The fascia radha and gluteus wale were closed with #2 Tycron suture. The subcutaneous tissue was closed in multiple layers using 0 Vicryl and 2-0 Vicryl. The skin was approximated with running subcuticular 2-0 nylon suture. Xeroform gauze and sterile dressing were applied. The patient tolerated the procedure well and arrived in the recovery room in stable and satisfactory condition. MD CRISTINA Corrales/TIMOTEO /1:31 PM /7:10 AM
--- NOTE | 2016-12-22 07:52 | PD.ORT.PN ---
Subjective Subjective Remarks pt doing well, states her pre-operative right hip pain is gone very happy and pleased Objective Vitals Vital Signs Date Time Temp Pulse Resp B/P Pulse Ox O2 Delivery O2 Flow Rate FiO2 12/22/16 00:24 97.6 76 15 115/58 97 12/21/16 22:06 93 21 12/21/16 20:55 97.6 78 18 144/82 98 12/21/16 16:00 98.7 80 18 117/56 94 12/21/16 12:00 96.4 79 18 119/58 95 12/21/16 09:18 97.5 63 18 97/50 96 I/O 12/21/16 12/21/16 12/21/16 12/22/16 12/22/16 12/22/16 07:00 15:00 23:00 07:00 15:00 23:00 Intake Total 280 ml 720 ml 480 ml 480 ml Balance 280 ml 720 ml 480 ml 480 ml Intake Oral 280 ml 720 ml 480 ml 480 ml # Voids 3 3 2 2 # Bowel Movements 0 0 1 2 Result Diagram: 12/20/16 0506 Objective Remarks seen by Dr. Mario Brown sitting up in chair comfortably right hip dressings dry and intact +NVI no calf tenderness, negative homans Assessment & Plan Assessment and Plan POD # 3 s/p R DIPAK low dose Coumadin for DVT prop PT-WBAT discharge to SNF today, orthopedically stable Mona Ram Dec 22, 2016 07:52
[2016-12-22 08:00] VITALS: BP 121/64; PULSE 74; RESP 18; TEMP 97.2; O2SAT 94
[2016-12-22] MEDS: DOCUSATE SODIUM 100 MG CAP PO SCH (08:01)
[2016-12-22] MEDS: ATORVASTATIN 80 MG TAB PO SCH (08:01)
[2016-12-22] MEDS: FLUoxetine HCL 20 MG CAP PO SCH (08:01)
[2016-12-22] MEDS: SODIUM CHLORIDE 0.9% FLUSH 5 ML FLUSH IVF SCH (08:01)
[2016-12-22 08:12] LABS: INTERNATIONAL NORMALIZED RATIO 1.8 RATIO; PROTHROMBIN TIME - PATIENT 20.1 SEC (9.8-11.6)
[2016-12-22] MEDS: LACTATED RINGER'S 1000 ML IV SCH (10:45)
[2016-12-22 11:16] VITALS: RESP 18
--- NOTE | 2017-01-22 13:30 | HHI.DS ---
Discharge Summary Admission Date Dec 19, 2016 at 09:35 Discharge Date: Dec 22, 2016 Admitting Diagnosis Right hip osteoarthritis Diagnosis: (1) Osteoarthritis of right hip Diagnosis: Principal Procedures Right total hip arthroplasty Brief History This is a 66 year old female patient who presents with the following history. Patient previously underwent left total hip arthroplasty and was doing very well. Gradually, she had onset of right hip pain. Over the holidays , the right hip pain became so severe that she was bedbound. She was evaluated and had x-rays which showed progressive osteoarthritis involving the right hip. She also underwent MRI scan and aspiration of the hip to confirm diagnosis. Patient was hardly able to ambulate due to pain and stiffness and total hip replacement was recommended. Imaging x-rays of the right hip show severe osteoarthritis with joint space narrowing of right hip PE at Discharge seen by Dr. Mario Brown sitting up in chair comfortably right hip dressings dry and intact +NVI no calf tenderness, negative homans Hospital Course Patient underwent satisfactory anaesthesia by the dept of anaesthesia. She underwent left total hip arthroplasty on the date of admission. She was treated with low dose Coumadin night before surgery and will be continued to be treated with low dose Coumadin for four weeks post-operatively. She was started with full weight bearing ambulation on pod #1. She progressed well. She was also followed by medical during her hospital stay. She was discharged to a SNF on post operative day #3 in stable condition. Pt Condition on Discharge: Stable Discharge Disposition: Discharge to SNF Discharge Instructions Diet Instructions: Coumadin (Warfarin) Diet Activities You Can Perform: Weight Bearing as Moan Moreland Jan 22, 2017 13:29
== END 2016-12-22 12:08 | DRG 470 ==
LOC: HSDI 12-19 09:35 → N06B 12-19 15:21
PROVIDERS: ADMIT Orthopaedic Surgery Orthopaedic Surgery of the Spine; ATTEND Orthopaedic Surgery Orthopaedic Surgery of the Spine
PROC: 0S993ZZ Drainage of Right Hip Joint, Percutaneous Approach (ICD-10-PCS; 2016-12-16)
PROC: 0SR90JA Replacement of Right Hip Joint with Synthetic Substitute, Uncemented, Open Approach (ICD-10-PCS; principal; 2016-12-19 11:15)
DX: M16.11 Unilateral primary osteoarthritis, right hip (principal); Z68.41 Body mass index [BMI] 40.0-44.9, adult; J44.9 Chronic obstructive pulmonary disease, unspecified; M06.9 Rheumatoid arthritis, unspecified; Z96.642 Presence of left artificial hip joint; E66.01 Morbid (severe) obesity due to excess calories; Q65.89 Other specified congenital deformities of hip; I10 Essential (primary) hypertension; G47.00 Insomnia, unspecified; E78.5 Hyperlipidemia, unspecified; K21.9 Gastro-esophageal reflux disease without esophagitis; E03.9 Hypothyroidism, unspecified; M62.838 Other muscle spasm; K59.00 Constipation, unspecified; F41.9 Anxiety disorder, unspecified; Z85.3 Personal history of malignant neoplasm of breast; Z87.891 Personal history of nicotine dependence; Z88.2 Allergy status to sulfonamides; Z90.10 Acquired absence of unspecified breast and nipple; M54.31 Sciatica, right side; M81.0 Age-related osteoporosis without current pathological fracture
CPT/HCPCS: 20610; 73501; 77002; 85014; 85018; 85610; 86850; 86900; 86901; 86920; 87070; 87205; 94150; C1776; J0690; J1100; J1170; J1580; J2250; J2270; J2405; J2710; J2795; J3010; J3370; J7030; J7050; J7120; L1830

== ENCOUNTER → 2016-12-11 | Outpatient (CLI) | payer MEDICARE ==
[~2016-12-11] MED LIST changes: +BEDSIDE COMMODE1 MI1; +BIOT1SUB SL; +HYDR-3580 PO; +LACTCAP8 PO; +WALKER WHEELS/F1 MIS
[2016-12-11 11:02] LABS: BLOOD, URINE MOD (NEG); GLUCOSE,URINE NEG (NEG); KETONE, URINE NEG (NEG); NITRITE,URINE NEG (NEG); PH, URINE 5.5 (5.0-8.5); URINE COLOR YELLOW (YELLW/STRAW)
[2016-12-11 11:08] LABS: APTT (PATIENT) 26.1 SEC (24.3-30.1); PROTHROMBIN TIME - PATIENT 10.7 SEC (9.8-11.6)
[2016-12-11 11:11] LABS: COMMENT (UR) CATH-CULTURE IND; CULTURE IF INDICATED CATH CULTURE IND; RENAL EPITHELIAL CELLS 0-5 /hpf; SQUAMOUS EPITHELIAL CELL URINE 0-5 /hpf (0-5)
[2016-12-11 11:22] LABS: AUTOMATED NEUTROPHIL # 11.3 TH/MM3 (1.8-7.7); BASOPHIL # 0.1 TH/MM3 (0-0.2); BASOPHIL % 0.4 % (0.0-2.0); EOSINOPHIL # 0.2 TH/MM3 (0-0.4); EOSINOPHIL % 1.2 % (0.0-4.0); HEMATOCRIT 42.8 % (35.0-46.0); HEMO FLAGS DIFF FINAL; LYMPH % 18.7 % (9.0-44.0); LYMPHOCYTE # 2.8 TH/MM3 (1.0-4.8); MEAN CORPUSCULAR HEMOGLOBIN 27.8 PG (27.0-34.0); MONO % 5.2 % (0.0-8.0); NEUT % 74.5 % (16.0-70.0); PLATELET COUNT 412 TH/MM3 (150-450); RED CELL DISTRIBUTION WIDTH 15.4 % (11.6-17.2); WHITE BLOOD COUNT 15.1 TH/MM3 (4.0-11.0)
[2016-12-11 11:29] LABS: POTASSIUM 4.1 MEQ/L (3.5-5.1)
== END ==
LOC: CPRE 09:35
PROVIDERS: ATTEND Orthopaedic Surgery Orthopaedic Surgery of the Spine
DX: Z01.812 Encounter for preprocedural laboratory examination (principal); M16.0 Bilateral primary osteoarthritis of hip
CPT/HCPCS: 36415; 80048; 81001; 85025; 85610; 85730; 87086

== ENCOUNTER 2016-12-16 06:48 | Day surgery (SDC) | payer MEDICARE ==
[~2016-12-16] VITALS: Ht 152.4 cm; Wt 99.1 kg
[~2016-12-16 06:48] MED LIST changes: -BEDSIDE COMMODE1 MI1; -BIOT1SUB SL; -HYDR-3580 PO; -LACTCAP8 PO; -WALKER WHEELS/F1 MIS
[2016-12-16 07:08] VITALS: BP 163/95; PULSE 86; RESP 20; TEMP 98.6; O2SAT 91
[2016-12-16] MEDS ORDERED: HYDR-3580 PO (07:30)
[2016-12-16] MEDS ORDERED: SODIUM CHLOR 0.9% 1000 ML INJ 1,000 ML IV SCH (07:30)
[2016-12-16] MEDS ORDERED: ROPIVACAINE 1% PF INJ 20 ML AMP ONE (10:16)
--- NOTE | 2016-12-16 10:59 | PD.RAD ---
Post Procedure Progress Note Pre Procedure Diagnosis: (1) Sciatica of right side (2) Right hip inflammation Post Procedure Diagnosis: (1) Sciatica of right side (2) Right hip inflammation Procedure Date: Dec 16, 2016 Supervising Radiologist: Zurdo Zuniga Proceduralist/Assist: Michelle Boateng, RT(R), Angela Starr RT(R) Anesthesia: Local Plan of Activity Patient to Unit: ROPU Patient Condition: Good See PACS Report for procedural detail/treatment Biopsy Imaging Guidance: Fluoroscopy Side: Right Biopsy Procedure: Other Site: Right hip Specimen: Fluid Fluid Removal (CCs): 1 Fluid Description: Clear Zurdo Zuniga MD Dec 16, 2016 10:59
[2016-12-16 11:00] VITALS: BP 134/87; PULSE 63; RESP 18; O2SAT 93
--- NOTE | 2016-12-16 14:21 | RADRPT ---
EXAM DATE/TIME: 12/16/2016 10:24 [facility] COMPARISON: No previous studies available for comparison. INDICATIONS : Patient with right hip pain and effusion in need of hip aspiration. MEDICAL HISTORY : HTN Osteoarthritis of hips, shoulder region, wrist, hand Degeneration of cervical intervertebral disc Lumbar post-laminectomy syndrome Osteoporosis Osteopenia COPD GERD Thyroid disease Hx right breast cancer SURGICAL HISTORY : Lt total hip replacement Rt mastectomy Cholecystectomy Hysterectomy ENCOUNTER: ACUITY: 1 month PAIN SCORE: 10/10 LOCATION: Right hip FLUORO TIME: 1.3 minutes MEDICATION(S): 1.) 5 cc ropivacaine (Naropin) IA DEVICE(S): 20 gauge needle was placed into the right hip joint. RESPONSE: Pre procedure pain level was 10/10 Post procedure pain level was 3/10 FLUID: Total volume of0.5 cc of clear fluid fluid was removed. Fluid specimen was submitted to the lab for evaluation. PROCEDURE : 1. Fluoroscopically guided right hip aspiration. The risks, benefits and alternatives to the procedure were explained and verbal and written consent w as obtained. The site was prepped in sterile fashion. Full sterile technique was used, including ca p, mask, sterile gloves and gown and a large sterile sheet. Hand hygiene and 2% chlorhexidine and/or betadine/alcohol prep was utilized per protocol for cutaneous antisepsis. The skin and subcutaneous tissues were infiltrated with local anesthetic solution. 0.5 cc of clear synovial fluid was aspirated and sent for Gram stain and culture and sensitivity. The patient tolerated the procedure well and there were no complications. CONCLUSION: Uncomplicated aspiration as above. Zurdo Zuniga MD on December 16, 2016 at 14:19 Board Certified Radiologist. This report was verified electronically.
== END 2016-12-16 13:40 | disposition home or self-care (01) ==
LOC: HRAD 06:48 → HRIP 06:49 → EDSTATUS 07:00 → HRAD 13:40
PROVIDERS: ATTEND Orthopaedic Surgery Orthopaedic Surgery of the Spine
DX: M54.31 Sciatica, right side (principal); M16.0 Bilateral primary osteoarthritis of hip; I10 Essential (primary) hypertension; J44.9 Chronic obstructive pulmonary disease, unspecified; E07.9 Disorder of thyroid, unspecified; K21.9 Gastro-esophageal reflux disease without esophagitis; M81.0 Age-related osteoporosis without current pathological fracture; M85.80 Other specified disorders of bone density and structure, unspecified site; Z85.3 Personal history of malignant neoplasm of breast
CPT/HCPCS: 20610; 77002; 87070; 87205; J2795; J7030